=== PATIENT | male | born 1975 ===

== ENCOUNTER 2018-04-14 10:08 | Emergency (ER) | payer SELFPAY ==
[2018-04-14 10:14] VITALS: BMI 30.3
[2018-04-14] MEDS ORDERED: Sodium Chloride 0.9% 1,000 ML IV ONE (10:58)
[2018-04-14 11:02] LABS: URINE BILIRUBIN NEGATIVE (NEGATIVE); URINE BLOOD NEGATIVE (NEGATIVE); URINE CLARITY Clear (Clear); URINE COLOR Yellow (YELLOW); URINE GLUCOSE (UA) NORMAL (Normal); URINE LEUKOCYTE ESTERASE NEG Leu/uL (Negative); URINE PROTEIN NEGATIVE (NEGATIVE); URINE UROBILINOGEN NORMAL mg/dL (0.2-1.0)
[2018-04-14 11:04] VITALS: RESP 18
[2018-04-14] MEDS ORDERED: Sodium Chloride 0.9% 1,000 ML ONE (11:10)
[2018-04-14 11:18] LABS: BASO % 0.5 % (0.0-2.0); EOS # 0.1 K/uL (0.0-0.7); EOS % 2.1 % (0.0-4.0); HEMOGLOBIN 14.2 g/dL (12.0-18.0); LYMPH # 1.7 K/uL (1.0-4.3); LYMPH % 28.3 % (20.0-40.0); MEAN CELL VOLUME 86.5 fL (80.0-94.0); MEAN CORPUSCULAR HEMOGLOBIN 30.5 pg (27.0-31.0); MEAN CORPUSCULAR HGB CONC 35.3 g/dL (33.0-37.0); MEAN PLATELET VOLUME 8.9 fL (7.2-11.7); MONO # 0.8 K/uL (0.0-0.8); MONO % 12.4 % (0.0-10.0); NEUT # 3.4 K/uL (1.8-7.0); NEUT % 56.7 % (50.0-75.0); RBC 4.66 Mil/uL (4.40-5.90); RED CELL DISTRIBUTION WIDTH 13.1 % (11.5-14.5)
[2018-04-14 11:26] LABS: ALB/GLOB RATIO 1.4 (1.0-2.1); ALBUMIN 4.3 g/dL (3.5-5.0); ALT/SGPT 69 U/L (21-72); AST/SGOT 37 U/L (17-59); BLOOD UREA NITROGEN 17 mg/dL (9-20); CALCIUM 8.8 mg/dl (8.6-10.4); GFR AFRICAN-AMERICAN > 60; GFR NON-AFRICAN AMERICAN > 60
[2018-04-14] MEDS ORDERED: Iodixanol 320 MG/ML 100 ML BOTTLE IV ONE (12:14)
--- NOTE | 2018-04-14 12:39 | US ---
Date of service: 04/14/2018 HISTORY: groin pain and swelling, rt testicle TECHNIQUE: Realtime sonography through the scrotum with color and doppler flow. COMPARISON: None Available. FINDINGS: RIGHT TESTICLE: Measures 4.9 x 2.4 x 3 cm. Normal echotexture and flow. RIGHT EPIDIDYMIS: Epididymal head measures 1.7 x 1.8 x 2.4 cm. There is a cyst seen at the right epididymal head measures 1.2 x 0.8 x 1.5 centimeter. There are also 2 small cyst seen at the right epididymal head with the largest measures 0.3 centimeter. LEFT TESTICLE: Measures 4.7 x 1.8 x 2.7 cm. Normal echotexture and flow. LEFT EPIDIDYMIS: Epididymal head measures 1.5 x 1.1 x 1.34 cm. There is a cyst seen at the left epididymal head measures 1 x 1 x 1.1 centimeter. There are also 2 small cyst seen at the left epididymal head with the largest measures 0.4 centimeter. HYDROCELE: There is small bilateral hydroceles noted. VARICOCELE: There is mild to moderate left-sided varicocele. OTHER FINDINGS: None. IMPRESSION: No evidence of testicular torsion. Bilateral epididymal head cysts larger on the right. Small bilateral hydroceles. Mild to moderate left varicocele.
--- NOTE | 2018-04-14 13:02 | C.PDOC ---
History Of Present Illness 42-year-old male presents to the ED with 3 day history of swelling and pain to the groin area including his penis. He has not tried any medication for symptom relief. States he recently finished a Medrol dose pack for irritation and allergy-type reaction to a tattoo he got 15 days ago on the right calf. Patient otherwise denies any abdominal pain, back pain, dysuria, penile discharge, hematuria, fever, or concern for STD. He has a history of prior surgery for varicocele. Time Seen by Provider: 04/14/18 10:38 Chief Complaint (Nursing): Groin Pain History Per: Patient History/Exam Limitations: no limitations Onset/Duration Of Symptoms: Days (x3) Current Symptoms Are (Timing): Still Present Past Medical History Reviewed: Historical Data, Nursing Documentation, Vital Signs Vital Signs: Last Vital Signs Temp 97.4 F L 04/14/18 15:04 Pulse 67 04/14/18 15:04 Resp 18 04/14/18 15:04 BP 122/83 04/14/18 15:04 Pulse Ox 96 04/14/18 15:04 Other Surgeries: Varicocele surgery Family History: States: Unknown Family Hx - Social History Hx Tobacco Use: No Hx Alcohol Use: No Hx Substance Use: No - Immunization History Hx Tetanus Toxoid Vaccination: No Hx Influenza Vaccination: No Hx Pneumococcal Vaccination: No Review Of Systems Except As Marked, All Systems Reviewed And Found Negative. Constitutional: Negative for: Fever, Chills Gastrointestinal: Negative for: Abdominal Pain Genitourinary: Positive for: Other (swelling and pain to groin area including penis). Negative for: Dysuria, Hematuria, Penile Discharge Musculoskeletal: Negative for: Back Pain Skin: Negative for: Rash, Lesions, Bruising Neurological: Negative for: Weakness, Numbness Physical Exam - Physical Exam Appears: Well, Non-toxic, No Acute Distress Skin: Warm, Dry, Other (tattoo right lower calf without cellulitis) Head: Atraumatic, Normacephalic Eye(s): bilateral: Normal Inspection Oral Mucosa: Moist Neck: Normal ROM Chest: Symmetrical Cardiovascular: Rhythm Regular, No Murmur Respiratory: Normal Breath Sounds, No Rales, No Rhonchi, No Wheezing Gastrointestinal/Abdominal: Soft, No Tenderness, No Distention, No Guarding, No Rebound, Other (Suprapubic swelling and tenderness with mild erythema) Male Genital: Inguinal Swelling (greater at right inguinal area), No Scrotal Swelling, Circumcised, Other (Penis appears swollen with no discharge, rash, or lesions; (+) mild right scrotal tenderness) Extremity: Bilateral: Atraumatic, Normal ROM Neurological/Psych: Oriented x3, Normal Speech ED Course And Treatment - Laboratory Results Result Diagrams: 04/14/18 11:06 04/14/18 11:06 Lab Interpretation: No Acute Changes O2 Sat by Pulse Oximetry: 97 (RA) Pulse Ox Interpretation: Normal - CT Scan/US Testicular US Other Rad Studies (CT/US): Read By Radiologist, Radiology Report Reviewed CT/US Interpretation: Accession No. : [id number]. Patient Name / ID : DANITA STARR / [id number]. Exam Date : 04/14/2018 11:45:03 ( Approved ). Study Comment : Sex / Age : M / 42Y. Creator : Tanya Delgado MD. Dictator : Tanya Delgado MD. Television News Reporter : Residency Program Coordinator : Tanya Delgado MD. Approver2 : Report Date : 04/14/2018 12:38:26. My Comment : . Date of service: 04/14/2018. HISTORY: groin pain and swelling, rt testicle. TECHNIQUE: Realtime sonography through the scrotum with color and doppler flow. COMPARISON: None Available. FINDINGS: RIGHT TESTICLE: Measures 4.9 x 2.4 x 3 cm. Normal echotexture and flow. RIGHT EPIDIDYMIS: Epididymal head measures 1.7 x 1.8 x 2.4 cm. There is a cyst seen at the right epididymal head measures 1.2 x 0.8 x 1.5 centimeter. There are also 2 small cyst seen at the right epididymal head with the largest measures 0.3 centimeter. LEFT TESTICLE: Measures 4.7 x 1.8 x 2.7 cm. Normal echotexture and flow. LEFT EPIDIDYMIS: Epididymal head measures 1.5 x 1.1 x 1.34 cm. There is a cyst seen at the left epididymal head measures 1 x 1 x 1.1 centimeter. There are also 2 small cyst seen at the left epididymal head with the largest measures 0.4 centimeter. HYDROCELE: There is small bilateral hydroceles noted. VARICOCELE: There is mild to moderate left-sided varicocele. OTHER FINDINGS: None. IMPRESSION: No evidence of testicular torsion. Bilateral epididymal head cysts larger on the right. Small bilateral hydroceles. Mild to moderate left varicocele. CT Abd/Pel Other Rad Studies (CT/US): Read By Radiologist, Radiology Report Reviewed CT/US Interpretation: FINDINGS: LOWER THORAX: Heart size is within range of normal. No significant pericardial effusion. Small to medium size hiatal hernia with wall thickening of the distal esophagus likely due protrusion gastric mucosa. Possibility of esophagitis not excluded. . Mild passive/ dependent type atelectasis both posterior lower lung chapman. LIVER: The liver measures approximately 17 cm in CC dimension. No obvious hepatic mass or collection. Mild fatty hepatic infiltration. Portal and splenic veins are opacified. GALLBLADDER AND BILE DUCTS: Gallbladder is physiologically distended. No evidence of intraluminal gallbladder calculi. PANCREAS: Unremarkable. No mass. No ductal dilatation. SPLEEN: Spleen is mildly enlarged measuring over 13 cm in AP dimension. No splenic mass collection or calcification. ADRENALS: There are no adrenal lesions. KIDNEYS AND URETERS: Kidneys demonstrate relatively symmetric nephrograms. No evidence of nephrolithiasis. Slight columnization right ureter. No renal masses or collections. BLADDER: Urinary bladder is physiologically distended. No evidence of intraluminal urinary bladder calculi. REPRODUCTIVE: There is a small approximately 11.9 x 7.3 mm elliptical shaped cystic foci focus along the superior aspect of the left scrotal sac that is of uncertain etiology though could represent small left-sided epididymal cyst-spermatocele. Follow-up testicular ultrasound could be performed further evaluation. Prostate gland measures approximately 4.4 cm in transverse dimension. Small of prostatic calcification. . APPENDIX: There is a normal-appearing retrocecal appendix which is best visualized on coronal sequence image number [id number]. BOWEL: Evaluation of the bowel is slightly limited due to the lack of oral contrast. Stomach is incompletely distended which presumably accounts thick-walled appearance. Gastritis not excluded. Visualized loops of small bowel exhibit normal contour and caliber. No evidence of acute mechanical small bowel obstruction. Stool and air seen throughout the large bowel. No obvious mural wall thickening. PERITONEUM: Unremarkable. No fluid collection. No free air. There are mild vague infiltration changes seen in the anterior subcutaneous tissues at the level of the symphysis and inguinal regions nonspecific. Rule out sequela of trauma or cellulitis. LYMPH NODES: Note made of a few small nonspecific retroperitoneal lymph nodes. VASCULATURE: Unremarkable. No aortic no evidence of abdominal aortic or iliac artery aneurysm. BONES: No fracture or destructive lesion. OTHER FINDINGS: None. IMPRESSION: Probable small of left epididymal cyst/spermatocele. There are mild vague infiltration changes seen in the anterior subcutaneous tissues at the level of the symphysis and inguinal regions nonspecific. Rule out sequela of trauma or cellulitis. Mild fatty hepatic infiltration. Mild splenomegaly. Small to medium size hiatal hernia. Findings discussed with Dr. Xavier of the emergency room department at approximately 2:20 p.m. with written down and read back verification. Medical Decision Making Medical Decision Making: Impression: Inguinal and penile swelling and pain Case discussed with ER Attending who agrees with plan and recommends both CT and US Plan: --CMP --CBC --RPR --Chlamydia/GC RNA, TMA --UA --Urine culture --IV fluids --30 mg IV Toradol --Testicular US --CT Abd/Pelvis with IV contrast Progress/Updates: Labs reviewed. Ultrasound and CT findings discussed with patient in detail, and copy of reports were provided. Case discussed with ED attending Dr. Xavier, who evaluated patient at bedside and recommends discharging patient home with PO antibiotics. On re-examination, patient is resting comfortably in no acute distress. Patient feels comfortable going home and will be discharged. Patient given follow up instructions. Patient expressed understanding. Instructed to return to ER if symptoms worsen or new symptoms arise. Disposition Counseled Patient/Family Regarding: Diagnosis, Need For Followup, Rx Given - Disposition Referrals: [facility] [Outside] Zach Gonsalez MD [Staff Provider] - Disposition: HOME/ ROUTINE Disposition Time: 14:24 Condition: STABLE Additional Instructions: Tus laboratorios fueron normales La ecografa muestra hidrocele, varicocele y quiste epididimal CT normal Usted tiene celulitis Bela antibiticos dos veces al da Seguimiento con urlogo y doctor en clinica Prescriptions: Cephalexin [cephalexin] 500 mg PO Q12 #14 cap Instructions: Cellulitis (Skin Infection), Adult (DC) Forms: [employer] (Maori) Print Language: SAMI - POA Present On Arrival: None - Clinical Impression Clinical Impression: Cellulitis, pelvic - PA / POWDERED METAL SUPERVISOR / Resident Statement MD/DO has reviewed & agrees with the documentation as recorded. - Scribe Statement The provider has reviewed the documentation as recorded by the Scribe (Rosaline Preciado) All medical record entries made by the Scribe were at my direction and personally dictated by me. I have reviewed the chart and agree that the record accurately reflects my personal performance of the history, physical exam, medical decision making, and the department course for this patient. I have also personally directed, reviewed, and agree with the discharge instructions and disposition.
--- NOTE | 2018-04-14 14:24 | CT ---
Date of service: 04/14/2018 PROCEDURE: CT scan abdomen pelvis HISTORY: Pelvic of pain and swelling COMPARISON: No prior study available comparison. TECHNIQUE: Contiguous axial images of the abdomen and pelvis. Oral contrast was administered. No IV contrast given. Coronal and Sagittal reformats generated. Radiation dose: Total exam DLP = 1255.64 MGy-cm. This CT exam was performed using one or more of the following dose reduction techniques: Automated exposure control, adjustment of the mA and/or kV according to patient size, and/or use of iterative reconstruction technique. FINDINGS: LOWER THORAX: Heart size is within range of normal. No significant pericardial effusion. Small to medium size hiatal hernia with wall thickening of the distal esophagus likely due protrusion gastric mucosa. Possibility of esophagitis not excluded. . Mild passive/dependent type atelectasis both posterior lower lung chapman. LIVER: The liver measures approximately 17 cm in CC dimension. No obvious hepatic mass or collection. Mild fatty hepatic infiltration. Portal and splenic veins are opacified. GALLBLADDER AND BILE DUCTS: Gallbladder is physiologically distended. No evidence of intraluminal gallbladder calculi. PANCREAS: Unremarkable. No mass. No ductal dilatation. SPLEEN: Spleen is mildly enlarged measuring over 13 cm in AP dimension. No splenic mass collection or calcification. ADRENALS: There are no adrenal lesions. KIDNEYS AND URETERS: Kidneys demonstrate relatively symmetric nephrograms. No evidence of nephrolithiasis. Slight columnization right ureter. No renal masses or collections. BLADDER: Urinary bladder is physiologically distended. No evidence of intraluminal urinary bladder calculi REPRODUCTIVE: There is a small approximately 11.9 x 7.3 mm elliptical shaped cystic foci focus along the superior aspect of the left scrotal sac that is of uncertain etiology though could represent small left-sided epididymal cyst-spermatocele. Follow-up testicular ultrasound could be performed further evaluation. Prostate gland measures approximately 4.4 cm in transverse dimension. Small of prostatic calcification. . APPENDIX: There is a normal-appearing retrocecal appendix which is best visualized on coronal sequence image number [id number] 52. BOWEL: Evaluation of the bowel is slightly limited due to the lack of oral contrast. Stomach is incompletely distended which presumably accounts thick-walled appearance. Gastritis not excluded. Visualized loops of small bowel exhibit normal contour and caliber. No evidence of acute mechanical small bowel obstruction. Stool and air seen throughout the large bowel. No obvious mural wall thickening. PERITONEUM: Unremarkable. No fluid collection. No free air. There are mild vague infiltration changes seen in the anterior subcutaneous tissues at the level of the symphysis and inguinal regions nonspecific. Rule out sequela of trauma or cellulitis. LYMPH NODES: Note made of a few small nonspecific retroperitoneal lymph nodes. VASCULATURE: Unremarkable. No aortic no evidence of abdominal aortic or iliac artery aneurysm. BONES: No fracture or destructive lesion. OTHER FINDINGS: None. IMPRESSION: Probable small of left epididymal cyst/spermatocele. There are mild vague infiltration changes seen in the anterior subcutaneous tissues at the level of the symphysis and inguinal regions nonspecific. Rule out sequela of trauma or cellulitis. Mild fatty hepatic infiltration. Mild splenomegaly. Small to medium size hiatal hernia. Findings discussed with Dr. Xavier of the emergency room department at approximately 2:20 p.m. with written down and read back verification.
[2018-04-14 15:04] VITALS: BP 122/83; PULSE 67; TEMP 97.4
[2018-04-14 18:21] VITALS: O2SAT 97
== END 2018-04-14 15:36 | disposition home or self-care (01) ==
LOC: C.ER 10:08
DX: L03.818 Cellulitis of other sites (principal)
CPT/HCPCS: 74177; 76870; 80053; 81001; 85025; 86592; 87086; 87491; 87591; 96361; 96374; 99283; J1885; J7030; Q9967

== ENCOUNTER 2018-09-20 15:33 | Emergency (ER) | payer SELFPAY ==
[2018-09-20 15:33] VITALS: BMI 30.3
[2018-09-20 15:53] VITALS: TEMP 98
--- NOTE | 2018-09-20 17:56 | C.PDOC ---
History Of Present Illness 42 y/o male presents to the ED complaining of pain in his right lower back since 09/18/17. States he bent over to pick something up and then felt sharp pain in the low back on extension. Pain is also radiating down the right leg. He denies any extremity numbness, paresthesias, fever, dysuria, or bowel or bladder incontinence. Patient reports having similar symptoms in the past, however never this severe. Time Seen by Provider: 09/20/18 16:40 Chief Complaint (Nursing): Back Pain History Per: Patient History/Exam Limitations: no limitations Onset/Duration Of Symptoms: Days (x3) Current Symptoms Are (Timing): Still Present Previous Symptoms: Back Pain Associated Symptoms: None Past Medical History Reviewed: Historical Data, Nursing Documentation, Vital Signs Vital Signs: Last Vital Signs Temp 98 F 09/20/18 15:51 Pulse 85 09/20/18 15:51 Resp 18 09/20/18 15:51 BP 123/85 09/20/18 15:51 Pulse Ox 97 09/20/18 15:51 Other Surgeries: Varicocelectomy Family History: States: Unknown Family Hx - Social History Hx Tobacco Use: No Hx Alcohol Use: No Hx Substance Use: No - Immunization History Hx Tetanus Toxoid Vaccination: No Hx Influenza Vaccination: No Hx Pneumococcal Vaccination: No Review Of Systems Except As Marked, All Systems Reviewed And Found Negative. Constitutional: Negative for: Fever, Chills Gastrointestinal: Negative for: Abdominal Pain Genitourinary: Negative for: Dysuria, Frequency, Incontinence, Hematuria Musculoskeletal: Positive for: Back Pain, Leg Pain Skin: Negative for: Rash Neurological: Negative for: Weakness, Numbness, Incoordination Physical Exam - Physical Exam Appears: Non-toxic, No Acute Distress Skin: Normal Color, Warm, Dry Head: Atraumatic, Normacephalic Eye(s): bilateral: Normal Inspection, PERRL, EOMI Neck: Normal ROM Chest: Symmetrical Respiratory: No Accessory Muscle Use, Other (No respiratory distress) Back: Vertebral Tenderness (midline lumbar), Paraspinal Tenderness (right paralumbar tenderness) Extremity: Normal ROM, No Tenderness, No Deformity, Other (Bilateral lower extremities are unremarkable, no deficits) Pulses: Left Dorsalis Pedis: Normal, Right Dorsalis Pedis: Normal Neurological/Psych: Oriented x3, Normal Motor, Normal Sensation, Normal Reflexes Gait: Steady ED Course And Treatment O2 Sat by Pulse Oximetry: 97 (RA) Pulse Ox Interpretation: Normal - Other Rad LS spine xray X-Ray: Viewed By Me, Read By Radiologist Interpretation: Accession No. : [id number]. Patient Name / ID : DANITA Carpio / [id number]. Exam Date : 09/20/2018 17:35:44 ( Approved ). Study Comment : Sex / Age : M / 42Y. Creator : Hari Doyle MD. Dictator : Hari Doyle MD. Asbestos Textile Supervisor : Casino Gaming Inspector : Hari Doyle MD. Approver2 : Report Date : 09/20/2018 18:01:46. My Comment : . Date of service: 09/20/2018. PROCEDURE: Radiographs of the Lumbar Spine. HISTORY: right sided LBP. COMPARISON: No prior. FINDINGS: BONES: Normal alignment. No listhesis. No fracture. DISC SPACES: Unremarkable. OTHER FINDINGS: None. IMPRESSION: Unremarkable radiographs of the lumbar spine. Progress Note: X-ray taken of LS spine. Patient was treated with Toradol, Valium and Lidoderm with partrtial improvement, still c/o pain. Wofe is at bedside. Patient was d/c home with PMD/Clinic follow up. Disposition - Disposition Referrals: [facility] at [facility] [Outside] Disposition: HOME/ ROUTINE Disposition Time: 20:05 Condition: STABLE Additional Instructions: Follow up with PMD/Clinic within 1-2 days. Return to ED if feel worse. Prescriptions: Lidocaine 4% [Lidocaine 4% 50 ml Topical (or)] 1 appl TOP QID #1 bottle Naproxen [Naprosyn] 1 tab PO BID PRN #25 tab PRN Reason: Pain oxyCODONE/Acetaminophen [Percocet 5/325 mg Tab] 1 tab PO QID PRN #20 tab PRN Reason: Pain diaZEpam [Valium] 2 mg PO TID #15 tab Instructions: Low Back Pain in Adults, Radiculopathy (DC) Forms: [employer] (Czech), Work Excuse - Clinical Impression Clinical Impression: Lumbar radiculopathy - PA / SENIOR MOBILE WEB DEVELOPER / Resident Statement MD/DO has reviewed & agrees with the documentation as recorded. - Scribe Statement The provider has reviewed the documentation as recorded by the Albertoibhayley Preciado All medical record entries made by the Albertoibhayley were at my direction and personally dictated by me. I have reviewed the chart and agree that the record accurately reflects my personal performance of the history, physical exam, medical decision making, and the department course for this patient. I have also personally directed, reviewed, and agree with the discharge instructions and disposition.
--- NOTE | 2018-09-20 18:05 | RAD ---
Date of service: 09/20/2018 PROCEDURE: Radiographs of the Lumbar Spine. HISTORY: right sided LBP COMPARISON: No prior. FINDINGS: BONES: Normal alignment. No listhesis. No fracture. DISC SPACES: Unremarkable. OTHER FINDINGS: None. IMPRESSION: Unremarkable radiographs of the lumbar spine.
[2018-09-20] MEDS ORDERED: Lidocaine 5% Patch TD STA (18:16)
[2018-09-20] MEDS ORDERED: Lidocaine 5% Patch TD ONE (18:27)
[2018-09-20 20:16] VITALS: BP 110/75; PULSE 78; RESP 16
[2018-09-20 22:04] VITALS: O2SAT 97
== END 2018-09-20 20:16 | disposition home or self-care (01) ==
LOC: C.ER 15:33
DX: M54.16 Radiculopathy, lumbar region (principal)
CPT/HCPCS: 72100; 96372; 99283; J1885